=== PATIENT | male | born 1955 | race Caucasian/White ===

== ENCOUNTER 2019-01-02 12:27 | Emergency (ER) | payer BC ==
[~2019-01-02] VITALS: Ht 190.5 cm; Wt 109.8 kg
[2019-01-02 12:33] VITALS: BP 161/92
[2019-01-02] MEDS ORDERED: SILV20CR14 TP (13:16)
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
== END 2019-01-02 13:22 | disposition home or self-care (01) ==
LOC: ER 12:27
DX: T23.202A Burn of second degree of left hand, unspecified site, initial encounter (principal); T20.10XA Burn of first degree of head, face, and neck, unspecified site, initial encounter; T20.17XA Burn of first degree of neck, initial encounter; T22.112A Burn of first degree of left forearm, initial encounter; E78.00 Pure hypercholesterolemia, unspecified; I10 Essential (primary) hypertension; X18.XXXA Contact with other hot metals, initial encounter; Y93.89 Activity, other specified; Y92.89 Other specified places as the place of occurrence of the external cause; Y99.8 Other external cause status
CPT/HCPCS: 99283